=== PATIENT | male | born 1980 | race Caucasian/White ===

== ENCOUNTER 2018-01-28 14:18 | Emergency (ER) | payer OTHER ==
[2018-01-28 14:35] VITALS: BP 109/80
--- NOTE | 2018-01-28 14:41 | ED ---
Bite Injury/Animal - HPI Summary HPI Summary: This is candice Mendozain documenting for attending Dr. Miriam Macdonald MD. A 37 y/o male presents to [facility] [place]. As per triage, "found bat in bedroom, no obvious bite". - History of Current Complaint Chief Complaint: UCBiteInjury Stated Complaint: RABIES EXPOSURE Time Seen by Provider: 01/28/18 14:37 Hx Obtained From: Patient Pain Intensity: 0 - Allergies/Home Medications Allergies/Adverse Reactions: Allergies Allergy/AdvReac Type Severity Reaction Status Date / Time No Known Allergies Allergy Verified 01/28/18 14:35 Home Medications: Home Medications Sertraline* [Zoloft*] 50 mg PO DAILY 01/28/18 [History Confirmed 01/28/18] clonazePAM TAB(*) [Klonopin TAB(*)] 0.5 mg PO DAILY 01/28/18 [History Confirmed 01/28/18] PMH/Surg Hx/FS Hx/Imm Hx Infectious Disease History: No Infectious Disease History: Denies: Traveled Outside the [place] in Last 30 Days - Social History Alcohol Use: Daily Alcohol Amount: 2-3 drinks Substance Use Type: Reports: None Smoking Status (MU): Light Every Day Tobacco Smoker Amount Used/How Often: 4 sig/day Physical Exam - Summary Physical Exam Summary: Appearance: Well-Appearing, No Pain Distress, Well-Nourished Eyes: conjunctiva clear, no discharge ENT: Hearing grossly normal, no muffled/hoarse voice. Neck: Normal, Supple Respiratory/Lung Sounds: Lungs clear, Normal breath sounds, No respiratory distress, No accessory muscle use Cardiovascular: RRR, No murmur Abdomen: Nontender, Soft, no guarding, not distended Bowel Sounds: Present Musculoskeletal: Normal Neurological: Alert, muscle tone normal Psychiatric:Normal, age appropriate behavior Skin: Normal, Warm, Dry, Normal color Triage Information Reviewed: Yes Vital Signs On Initial Exam: Initial Vitals Temp Pulse Resp BP Pulse Ox 97.8 F 54 16 109/80 98 01/28/18 14:29 01/28/18 14:29 01/28/18 14:29 01/28/18 14:29 01/28/18 14:29 Vital Signs Reviewed: Yes Diagnostics - Vital Signs Vital Signs Temp Pulse Resp BP Pulse Ox 01/28/18 14:29 97.8 F 54 16 109/80 98 - Laboratory Lab Statement: Any lab studies that have been ordered have been reviewed, and results considered in the medical decision making process. Discharge - Discharge Plan Referrals: Carmen Horton DO [Primary Care Provider] -
[2018-01-28] MEDS ORDERED: Rabies VIRUS VACCINE (Imovax)* 2.5 UNIT/ML 1 ML IM ONE (15:09)
[2018-01-28] MEDS ORDERED: Rabies Immune Globulin 10 ML* 150 UNIT/ML VIAL IM ONE (15:10)
[2018-01-28] MEDS ORDERED: Tetan/Diph/Pertus SYR(Tdap)* 0.5 ML SYR(BOOSTRIX) use SYR IM ONE (15:15)
--- NOTE | 2018-01-28 15:24 | UC ---
Bite Injury/Animal HPI - HPI Summary HPI Summary: 37 y/o male presents to the urgent care c/p of being exposed to a bat while sleeping last night. Pt reports he and his woke up and a bat was flying over them. Pt has not noticed any bites or scratches on his body. However called Health department and was advised to come to the urgent care for rabies prophylaxis. Pt is not UTD w/ Tetanus vaccines. Last dose was when he was a child. Pt denies fever, PARRA, dizziness, SOB, chest pain, abdominal pain, N/V/D. - History of Current Complaint Chief Complaint: UCBiteInjury Stated Complaint: RABIES EXPOSURE Time Seen by Provider: 01/28/18 14:37 Hx Obtained From: Patient Severity Currently: Mild Pain Intensity: 0 Pain Scale Used: 0-10 Numeric Onset/Duration: Sudden Onset, Lasting Hours - 12 hrs Type of Bite: Animal - bat exposure Has Animal Been Immunized?: No Aggravating Factor(s): Nothing Alleviating Factor(s): Nothing Associated Signs And Symptoms: Positive: Negative Animal Available for Observation: No Animal Control Notified: Yes - Risk Factors Infection/Sepsis Risk Factors: Negative - Allergies/Home Medications Allergies/Adverse Reactions: Allergies Allergy/AdvReac Type Severity Reaction Status Date / Time No Known Allergies Allergy Verified 01/28/18 14:35 Home Medications: Home Medications Sertraline* [Zoloft*] 50 mg PO DAILY 01/28/18 [History Confirmed 01/28/18] clonazePAM TAB(*) [Klonopin TAB(*)] 0.5 mg PO DAILY 01/28/18 [History Confirmed 01/28/18] PMH/Surg Hx/FS Hx/Imm Hx Previously Healthy: Yes - Pt denies PMHX - Surgical History Surgical History: None - Family History Known Family History: Positive: None - Pt denies FMHX - Social History Occupation: Employed Full-time Lives: With Family Alcohol Use: Daily Alcohol Amount: 2-3 drinks Substance Use Type: None Smoking Status (MU): Light Every Day Tobacco Smoker Amount Used/How Often: 4 sig/day - Immunization History Most Recent Tetanus Shot: unknown, thinks more than 5 years Review of Systems Constitutional: Negative Skin: Negative Eyes: Negative ENT: Negative Respiratory: Negative Cardiovascular: Negative Gastrointestinal: Negative Genitourinary: Negative Motor: Negative Neurovascular: Negative Musculoskeletal: Negative Neurological: Negative Psychological: Negative Is Patient Immunocompromised?: No All Other Systems Reviewed And Are Negative: Yes Physical Exam - Summary Physical Exam Summary: Vital Signs Reviewed: Yes General: well developed, well nourished male sitting in the examining table w/o any apparent distress. Eyes: Positive: Conjunctiva Clear - PERRLA, EOMI ENT: Positive: Normal ENT inspection, Hearing grossly normal, Pharynx normal, TMs normal Neck: Positive: Supple, Nontender, No Lymphadenopathy Respiratory: Positive: Chest nontender, Lungs clear, Normal breath sounds Cardiovascular: Positive: RRR, No Murmur, Pulses Normal Abdomen Description: Positive: Nontender, No Organomegaly, Soft. Negative: CVA Tenderness (R), CVA Tenderness (L) Bowel Sounds: Positive: Present Musculoskeletal: Positive: Strength Intact, ROM Intact, No Edema Neurological Exam: Normal Psychological Exam: Normal Skin: warm and drt no signs of bat bites. Triage Information Reviewed: Yes Vital Signs: Initial Vital Signs Temp 97.8 F 01/28/18 14:29 Pulse 54 01/28/18 14:29 Resp 16 01/28/18 14:29 BP 109/80 01/28/18 14:29 Pulse Ox 98 01/28/18 14:29 Vital Signs Reviewed: Yes Bite Injury Course/Dx - Course Course Of Treatment: 37 y/o male presents to the urgent care c/p of being exposed to a bat while sleeping last night. Pt reports he and his woke up and a bat was flying over them. Pt has not noticed any bites or scratches on his body. However called Health department and was advised to come to the urgent care for rabies prophylaxis. Pt is not UTD w/ Tetanus vaccines. Last dose was when he was a child. Pt denies fever, PARRA, dizziness, SOB, chest pain, abdominal pain, N/V/D. Hx obtained. PE: WNL. Since bat bites can be undetectable pt will be given Rabies prophylaxis. Rabies vaccine, Immunoglobulin ordered and Tdap. Vaccines Administered by Nurse. Pt tolerated well vaccines. Pt educated on Rabies and advised to f/u w/ health department for following doses on day 3,7,14,28. D/c instructions explained. Pt understood and agreed w/ plan of care. - Differential Dx/Diagnosis Differential Diagnosis/HQI/PQRI: Puncture, Rabies Exposure, Superficial Infection Provider Diagnoses: 1 Rabies prophylaxis s/p bat exposure Discharge - Sign-Out/Discharge Documenting (check all that apply): Patient Departure - D/c home - Discharge Plan Condition: Stable Disposition: HOME Patient Education Materials: Rabies (ED), Rabies Vaccine (ED) Referrals: Carmen Horton DO [Primary Care Provider] - 3 Days Additional Instructions: 1 You were given first dose of Rabies vaccine and Rabies Immunoglobulin. Please f/u w/ Health Department on day 3,7,14 and 28 for for following doses. 2 If you develop fever, PARRA, N/V, abdominal pain, respiratory distress, muscle pain, dizziness please return to the urgent care or the ER for further management - Billing Disposition and Condition Condition: STABLE Disposition: Home
== END 2018-01-28 15:55 | disposition home or self-care (01) ==
LOC: UCEAST 14:18
DX: Z20.3 Contact with and (suspected) exposure to rabies (principal); Z23 Encounter for immunization; F17.210 Nicotine dependence, cigarettes, uncomplicated
CPT/HCPCS: 90375; 90471; 90472; 90715; 96372; 99211; G0463